=== PATIENT | male | born 1975 | race Caucasian/White ===

== ENCOUNTER 2020-06-20 20:11 | Emergency (ER) | payer MEDICAID, SELFPAY ==
[2020-06-20 20:13] VITALS: BP 140/100; PULSE 98; RESP 16; TEMP 36.4; O2SAT 99; BMI 21.4
--- NOTE | 2020-06-20 20:34 | EKG12_ITS ---
Test Reason : ABD PAIN Blood Pressure : / mmHG Vent. Rate : 074 BPM Atrial Rate : 074 BPM P-R Int : 126 ms QRS Dur : 108 ms QT Int : 394 ms P-R-T Axes : 064 067 069 degrees QTc Int : 437 ms Normal sinus rhythm Possible Left atrial enlargement Incomplete right bundle branch block Borderline ECG Confirmed by JONATHON MCDONOUGH, ANDRIA ([id number]), social media editor SEKOU MARSH ([id number]) on 06/25/2020 10:45:23 AM Referred By: ALCON Confirmed By:ANDRIA HOLT MD
--- NOTE | 2020-06-20 20:35 | ED.VIS.GEN ---
History of Present Illness Chief Complaint: Abd Pain Informant: Patient Narrative: 44-year-old male presenting with lightheadedness and a little shortness of breath. He states he also felt nauseous. This all started today. He does not body aches or change in taste or smell. He already had Covid a few months ago. He is on hormone replacement therapy on estrogen. He denies out right chest pain. Patient has leukocytosis of 13,000. Hemoglobin is stable. No history of DVT/PE. Past Medical History - Allergies and Home Meds Allergies/Adverse Reactions: Allergies No Known Allergies Allergy (Verified 06/20/20 20:12) Primary Care Physician: Care Physician,No Primary [Primary Care Provider] - Prior records reviewed: Yes Past Medical History: - - Denies significant medical problems Surgical History: noncontributory Lives: Alone Smoking Status: Current every day smoker Alcohol: None Drugs: None Review of Systems General: Denies: Chills, Fever, Sweats Eyes: Denies: Visual changes - bilaterally, Diplopia ENT: Denies: Rhinorrhea, Sore throat Cardiovascular: Denies: Chest pain, Palpitations Respiratory: Reports: Dyspnea, Cough. Denies: Sputum, Dyspnea on exertion Gastrointestinal: Reports: Nausea. Denies: Abdominal pain, Vomiting, Diarrhea, Melena, Hematochezia Genitourinary: Denies: Dysuria, Hematuria, Frequency Skin: Denies: Rash, Abscess Neurological: Reports: Headache. Denies: Parasthesia, Numbness Psych: Denies: Depression, Anxiety Endocrine: Denies: Polyuria, Polydipsia Physical Exam Vital Signs/Narrative: Vital Signs Temp Pulse Resp BP Pulse Ox 06/20/20 20:13 97.6 F L 98 16 140/100 H 99 Inital Vital Signs reviewed: Yes General: Well nourished, No Acute Distress Head: Normocephalic, Atraumatic Eyes: Perrl, EOMI ENT: Moist mucous membranes, No rhinorrhea Respiratory: No distress, CTA bilaterally Abdomen: Soft, Nontender, Nondistended Extremities: Nontender, No edema Skin: Normal color, No rash Neurological: Alert, Oriented x3, Cranial nerves II-XII grossly intact Psychological: Normal affect, Normal Mood Diagnostic/Tx/Re-eval Clinical Impression(s) from Imaging Studies Chest X-Ray 06/20/20 20:55 IMPRESSION: No acute cardiopulmonary disease or major interval change. Electronically Signed: Edenilson Mckeon DO at 21:26 EST Tel [phone], Service support , Chest CTA 06/20/20 21:31 IMPRESSION: Normal CTA chest examination, without a demonstrated pulmonary embolism or arterial dissection. Electronically Signed: Edenilson Mckeon DO at 21:59 EST Tel [phone], Service support , Laboratory Data 06/20/20 06/20/20 20:46 20:46 WBC 8.8 RBC 4.74 Hgb 14.6 Hct 42.9 MCV 90.5 MCH 30.8 MCHC 34.0 RDW Std Deviation 43.7 RDW Coeff of Terry 13.2 Plt Count 324 MPV 10.8 Immature Gran % (Auto) 0.300 Neut % (Auto) 64.3 Lymph % (Auto) 28.6 [place]illa % (Auto) 6.0 Eos % (Auto) 0.3 Baso % (Auto) 0.5 Absolute Neuts (auto) 5.6 Absolute Lymphs (auto) 2.51 Nucleated RBC % 0 Sodium 134 L Potassium 3.9 Chloride 101 Carbon Dioxide 27.0 Anion Gap 6 BUN 11 Creatinine 0.93 Estim Creat Clear Calc 96.59 Est GFR (MDRD) Af Amer 114 Est GFR (MDRD) Non-Af 94 BUN/Creatinine Ratio 11.8 Glucose 87 Calcium 9.3 Troponin I < 0.015 - Medical Decision Making Patient presenting with lightheadedness and shortness of breath with mild cough today. He states he also experienced nausea. EKG performed on arrival showed normal sinus rhythm with incomplete bundle branch block without signs of ischemic changes interpreted by myself. Chest x-ray one-view portable interpreted by myself shows no acute cardiopulmonary process. Lab work including CBC, CMP, and troponin were unremarkable. Given patient undergone estrogen and is post Covid I did have concern for PE. CTA of the chest does not identify any PE or dissection or other acute abnormality. Patient's vital signs are stable and he is afebrile nontoxic-appearing. I feel he is safe to be discharged home. Impression: 1. Viral syndrome ED Disposition - Plan for ED Patient: Disposition: Home or Assisted Living Instructions: ED Viral Syndrome (Adult) Referrals: Care Physician,No Primary [Primary Care Provider] -
--- NOTE | 2020-06-20 20:55 | RAD_ITS ---
STUDY: X-RAY CHEST REASON FOR EXAM: Male, 44 years old. Abdominal pain. Upset stomach. Lightheadedness and shortness of breath with symptoms beginning today. History of COVID 19 3 months ago. TECHNIQUE: Single AP portable view of the chest. COMPARISON: 01/23/2016. FINDINGS: The lungs are clear and expanded. There is no demonstrated pleural abnormality. Normal size heart. Normal mediastinum and anabela. Normal visualized pulmonary arteries. Normal visualized aortic arch and descending thoracic aorta. Normal visualized thoracic spine. Normal visualized ribs, clavicles, and shoulders. There is no demonstrated abnormality of the visualized soft tissue structures of the upper abdomen. RAD/Chest 1 View (Portable) IMPRESSION: No acute cardiopulmonary disease or major interval change. Electronically Signed: Edenilson Mckeon DO at 21:26 EST Tel [phone], Service support ,
[2020-06-20 21:04] LABS: Absolute Lymphocyte Count 2.51 X10^3/uL (0.83-4.51); Absolute Neutrophil Count 5.6 X10^3/uL (2.0-7.7); Basophil# 0.04 X10^3/uL; Basophil% 0.5 % (0-1); Eosinophil# 0.03 X10^3/uL; Eosinophils% 0.3 % (0-5); Hematocrit 42.9 % (40-54); Hemoglobin 14.6 g/dL (13.0-16.5); Lymphocyte # 2.51 X10^3/ul (4.0); Lymphocyte % 28.6 % (19-41); Mean Corpuscular Hgb 30.8 pg (27.0-32.0); Mean Corpuscular Volume 90.5 fL (80-94); Mean Platelet Vol. 10.8 fl (6.2-12.0); Monocyte# 0.53 X10^3/uL; NRBC Flagged by Analyzer 0 % (0-5); Neutrophil # 5.64 X10^3/uL (2.7-7.7); Neutrophil % 64.3 % (47-70); Platelet Count 324 K/mm3 (150-450); RBC Distribution Width CV 13.2 % (11.6-14.6); RBC Distribution Width SD 43.7 fl (35.1-43.9); Red Blood Count 4.74 M/mm3 (4.6-6.2); White Blood Count 8.8 K/mm3 (4.4-11.0)
[2020-06-20 21:21] LABS: Anion Gap 6 (5-15); BUN 11 mg/dL (7-18); BUN/Creat Ratio 11.8 RATIO (10-20); Calcium,Total 9.3 mg/dL (8.5-10.1); Chloride 101 mmol/L (98-107); Creatinine, Serum 0.93 mg/dL (0.70-1.30); EST Glomerular Filtration Rate 94 mL/min (>60); Est Glom Filt Rate - Afr Amer 114 mL/min (>60); Estimated Creatinine Clearance 96.59 ml/min; Glucose 87 mg/dL (74-106); Potassium 3.9 mmol/L (3.5-5.1); Sodium Level 134 mmol/L (136-145)
--- NOTE | 2020-06-20 21:31 | CT_ITS ---
STUDY: CTA CHEST REASON FOR EXAM: Male, 44 years old. Abdominal pain lightheadedness and shortness of breath beginning yesterday. History of COVID 19 3 months ago. RADIATION DOSAGE (If Supplied By Facility): CTDIvol = ( 4.38 ) mGy, DLP = ( 164.96 ) mGycm TECHNIQUE: The examination was performed with the intravenous administration of IV 100mL Isovue-370. Post-processing of the angiographic images was performed, with multiplanar reformation and 3D reconstruction. Individualized dose optimization techniques were used for this CT. COMPARISON: None. FINDINGS: Normal enhancement of the main pulmonary artery and right and left pulmonary arteries. Normal enhancement of the bilateral peripheral pulmonary arteries. There is no demonstrated pulmonary embolism. Normal thoracic aorta and visualized great vessels. There is no demonstrated aortic dissection. Normal heart and pericardium. Normal mediastinum. Normal hilar regions. Normal visualized trachea and bronchi. The lungs are well expanded. Normal pulmonary parenchyma. Normal pleura. Normal chest wall structures. Normal osseous structures. Normal visualized upper abdomen. CT/CTA Chest W/WO Contrast IMPRESSION: Normal CTA chest examination, without a demonstrated pulmonary embolism or arterial dissection. Electronically Signed: Edenilson Mckeon DO at 21:59 EST Tel [phone], Service support ,
[2020-06-20 22:14] VITALS: BP 117/86; PULSE 79; RESP 16; O2SAT 99
== END 2020-06-20 22:21 | disposition home or self-care (01) ==
PROVIDERS: Emergency Provider Student in an Organized Health Care Education/Training Program
DX: B34.9 Viral infection, unspecified (principal); R42 Dizziness and giddiness; R11.0 Nausea; R06.00 Dyspnea, unspecified; R05 Cough; R51.9 Headache, unspecified; I45.10 Unspecified right bundle-branch block; F17.200 Nicotine dependence, unspecified, uncomplicated
CPT/HCPCS: 71045; 71275; 80048; 84484; 85025; 93005; 96360; 99285; J7040; Q9967

== ENCOUNTER 2021-05-03 18:50 | Emergency (ER) | payer MEDICAID, SELFPAY ==
[2021-05-03 18:51] VITALS: BP 134/98; PULSE 97; RESP 18; TEMP 36.1; O2SAT 100; BMI 20.7
--- NOTE | 2021-05-03 21:59 | EDS_ITS ---
HPI HPI - URI History of Present Illness Chief Complaint: Cold Sx Narrative Narrative: 45-year-old male presenting with abdominal cramping. He states this is just like when he had Covid the first 2 times. He is not had a fever, chills, body aches. He does not have a cough. He does not feel short of breath. He is not having nausea, vomiting, diarrhea. He states that he just wants to get tested because he does not want anybody else sick. He states that on his first 2 bouts of Covid that he never required any specific treatment and did well. He has not been hospitalized. [facility] ED Constitutional Constitutional ED: Denies chills or fever(s) Eyes Eyes: Denies blurry vision or diplopia ENT ENT ED: Denies rhinorrhea or sore throat Cardiovascular Cardiovascular: Denies chest pain Respiratory/Chest Respiratory/Chest: Denies cough, dyspnea or sputum Gastrointestinal Gastrointestinal: Reports other Details: Mild abdominal cramping ; Denies diarrhea, nausea or vomiting Genitourinary Genitourinary ED: Denies dysuria or hematuria Musculoskeletal Musculoskeletal: Denies arthralgias or myalgias Integumentary Denies rash Neurologic Neurologic: Denies headache(s) or paresthesias Psychiatric Psychiatric: Denies anxiety or depression [facility] Medical History Depression Home Medications estradiol 2 mg PO TID 06/20/20 [History Last Taken Unknown] fluoxetine 20 mg PO DAILY 06/20/20 [History Last Taken Unknown] spironolactone 100 mg PO DAILY 06/20/20 [History Last Taken Unknown] Allergy/AdvReac Type Severity Reaction Status Date / Time No Known Allergies Allergy Verified 06/20/20 20:12 Social History Smoking Status: Current every day smoker tobacco type: cigarettes EXAM Physical Exam Const Vital Signs: 05/03/21 18:51 05/03/21 19:32 Temperature 96.9 F L Temperature Source Temporal Pulse Rate 97 Respiratory Rate 18 Respiratory Effort Normal Non-Labored Respiratory Depth Normal Respiratory Pattern Normal Blood Pressure 134/98 H Blood Pressure Mean 110 Pulse Ox 100 Oxygen Delivery Method Room Air Positive well nourished General Appearance ED: NAD; Negative for pallor HEENT Reports moist mucous membranes normocephalic and atraumatic Eyes PERRL and EOMs intact bilaterally Neck no lymphadenopathy, supple and no meningeal signs Resp normal respiratory effort and clear to auscultation bilaterally Cardio Rate: regular rate Rhythm: regular rhythm Extremity normal to inspection Neuro oriented x3 and CN's II-XII intact bilaterally Sensorium / Orientation: alert Psych mental status grossly normal Skin General Skin Exam: Negative for jaundice or pallor MDM MDM MDM Narrative Medical decision making narrative: Patient presenting requesting a test for COVID-19. He only has a mild abdominal cramping. He states this is probably his third time having COVID-19. He states that he did well with the other 2 times he was diagnosed. He does not require any treatment. He wants to be tested so that he does not infect others. Patient will be tested with Covid PCR send out. He is counseled to quarantine at home until his test results. If he is positive he is to quarantine for the full 10 days. If negative he is counseled on return to work. Patient amenable to this and stable for discharge. Impression: 1. Viral syndrome Discharge Plan Triage Chief Complaint: Cold Sx ED Provider: Haider Parker Dx/Rx/DC Orders Instructions: ED Viral Syndrome (Adult) Prescriptions: No Action spironolactone 100 MG tablet 100 mg PO DAILY RF: 0 estradiol 2 MG tablet 2 mg PO TID RF: 0 fluoxetine 20 MG capsule 20 mg PO DAILY RF: 0 Primary Care Provider: Care Physician,No Primary Referrals: Care Physician,No Primary [Primary Care Provider] - Disposition Disposition: Home, Self Care Discharge Date/Time: 05/03/21 20:22
== END 2021-05-03 20:22 | disposition home or self-care (01) ==
LOC: ED 20:02
PROVIDERS: Emergency Provider Student in an Organized Health Care Education/Training Program
DX: B34.9 Viral infection, unspecified (principal); R10.9 Unspecified abdominal pain; F32.A Depression, unspecified; Z79.899 Other long term (current) drug therapy; F17.210 Nicotine dependence, cigarettes, uncomplicated
CPT/HCPCS: 87635; 99282; U0003; U0005

== ENCOUNTER 2021-12-23 13:02 | Emergency (ER) | payer MEDICAID, SELFPAY ==
[2021-12-23 13:03] VITALS: BP 121/98; PULSE 99; RESP 16; TEMP 37.1; O2SAT 100; BMI 21.6
--- NOTE | 2021-12-23 13:41 | RAD_ITS ---
STUDY: X-RAY - LUMBAR SPINE REASON FOR EXAM: Male, 46 years old. LOW BACK PAIN, OLD INJURIES TECHNIQUE: 3 view(s) of the lumbar spine were obtained. COMPARISON: None FINDINGS: Normal lumbar lordosis. There is no substantial scoliosis. There is a normal alignment of the vertebrae. There is mild multilevel endplate spondylosis of the lumbar vertebrae. Normal disc space heights. L5/S1 facet arthropathy is present. The soft tissue structures are unremarkable. RAD/Lumbar Spine 2 or 3 Views IMPRESSION: Mild endplate degenerative changes with no evidence of underlying compression deformity or malalignment. L5/S1 facet arthropathy. Electronically Signed: Jacobo Abdul DO at 14:31 EDT ,
[2021-12-23] MEDS: Ketorolac 60 MG/2 ML Vial IM (14:07)
--- NOTE | 2021-12-23 14:32 | EDS_ITS ---
HPI History of Present Illness Chief Complaint: Back Informant: patient Narrative Narrative: 46-year-old patient presenting to the emergency room with low back pain and right leg pain. Patient states that about 4 months ago he felt his back suddenly tighten up when he bent over and since that time he has had pain since. He states that it is mid to low back in the lumbar area and radiates down into the right buttock and right leg. He denies any bowel or bladder dysfunction. He denies any foot drop. No fevers or IV drug use. No rashes. He has not seen anybody for this. Patient notes that he has not had any known direct trauma to the spine. He notes that he does drink quite heavily but plans on stopping this. He is a smoker [facility] Medical History Depression Home Medications estradiol 2 mg tablet 2 mg PO TID 06/20/20 [History Last Taken Unknown] fluoxetine 20 mg capsule 20 mg PO DAILY 06/20/20 [History Last Taken Unknown] spironolactone 100 mg tablet 100 mg PO DAILY 06/20/20 [History Last Taken Unknown] cyclobenzaprine 10 mg tablet 10 mg PO TID PRN Muscle Spasm #15 TABLETS 12/23/21 [Rx Last Taken Unknown] hydrocodone-acetaminophen 5-325mg 5mg-325mg 1 tab PO Q6H PRN PRN Pain 3 days #12 TABLETS 12/23/21 [Rx Last Taken Unknown] Allergy/AdvReac Type Severity Reaction Status Date / Time No Known Allergies Allergy Verified 12/23/21 13:03 Social History (Updated 12/23/21 @ 14:[address] Chuck Rodarte DO) Smoking Status: Current every day smoker tobacco type: cigarettes alcohol intake: current alcohol intake frequency: 3 or more drinks per day [facility] ED Constitutional Constitutional ED: Denies chills or weight loss Eyes Eyes: Denies change in vision or diplopia ENT ENT ED: Denies ear pain, rhinorrhea or sore throat Cardiovascular Cardiovascular: Denies chest pain, orthopnea, palpitations or racing heartbeat Respiratory/Chest Respiratory/Chest: Denies cough, dyspnea or orthopnea Gastrointestinal Gastrointestinal: Denies abdominal pain, diarrhea, nausea or vomiting Genitourinary Genitourinary ED: Denies dysuria, hematuria or urinary frequency Musculoskeletal Musculoskeletal: Reports back pain; Denies arthralgias or myalgias Integumentary Denies abscess or rash Neurologic Neurologic: Reports paresthesias; Denies headache(s) or weakness Psychiatric Psychiatric: Denies anxiety, depression, suicidal ideation or suicidal thoughts Endocrine Endocrinology: Denies polydipsia, polyphagia or polyuria Allergic/Immunologic Allergic/Immunologic ED: Denies mouth swelling, tongue swelling or urticaria EXAM Physical Exam Const Vital Signs: 12/23/21 13:03 Temperature 98.8 F Temperature Source Temporal Pulse Rate 99 Respiratory Rate 16 Blood Pressure 121/98 H Blood Pressure Mean 105 Pulse Ox 100 Oxygen Delivery Method Room Air Positive well nourished and well developed General Appearance ED: well developed HEENT Reports normocephalic, head/scalp atraumatic and moist mucous membranes Eyes PERRL and EOMs intact bilaterally Neck no lymphadenopathy, supple and no JVD Resp normal respiratory effort and clear to auscultation bilaterally Cardio regular rate, regular rhythm and no murmurs GI normal to inspection, nondistended, normoactive bowel sounds and non-tender Palpation: soft Back/Spine no CVA tenderness Back/Spine Narrative: Patient has painful flexion extension as well as rotation in the lumbar spine. There is lumbar paraspinal musculature tenderness. No hyperemic tissues. Tenderness in the piriformis notch. No foot drop or loss of sensation no saddle anesthesia. No rashes Extremity normal to inspection General Extremety ED: Negative for edema General Extremity: Negative for edema Neuro oriented x3 and CN's II-XII intact bilaterally Sensorium / Orientation: alert Motor Exam: strength 5/5 throughout Psych mental status grossly normal Mood & Affect: Negative for depressed or tearful Skin no rashes or lesions noted and no wounds MDM MDM MDM Narrative Medical decision making narrative: My interpretation of the plain films of the lumbar spine is no acute process. There seems to be adequate spacing between the vertebrae. Radiology reads as mild endplate degenerative changes with L5-S1 facet arthropathy. As its been 4 months the patient continues to have symptoms and we will have him follow-up with spine. I can write for a short course of pain medication. Would encourage him to quit smoking and drinking. Radiography Diagnostic Testing: Clinical Impression(s) from Imaging Studies Lumbar Spine X-Ray 12/23/21 13:41 IMPRESSION: Mild endplate degenerative changes with no evidence of underlying compression deformity or malalignment. L5/S1 facet arthropathy. Electronically Signed: Jacobo Abdul DO at 14:31 EDT , Discharge Plan Triage Chief Complaint: Back ED Provider: Chuck Rodarte Dx/Rx/DC Orders Clinical Impression: Acute lumbar radiculopathy, Acute lumbar back pain Instructions: ED Sciatica Prescriptions: New hydrocodone-acetaminophen [hydrocodone-acetaminophen] 5-325 mg tablet 1 tab PO Q6H PRN PRN (Reason: Pain) 3 Days Qty: 12 0RF cyclobenzaprine [cyclobenzaprine] 10 mg tablet 10 mg PO TID PRN (Reason: Muscle Spasm) Qty: 15 0RF No Action spironolactone 100 MG tablet 100 mg PO DAILY estradiol 2 MG tablet 2 mg PO TID fluoxetine 20 MG capsule 20 mg PO DAILY Primary Care Provider: Care Physician,No Primary Referrals: Emigdio Ly DO [Med Staff - Active Staff] - As soon as possible Care Physician,No Primary [Primary Care Provider] - Disposition Disposition: Home, Self Care
[2021-12-23 14:41] VITALS: PULSE 79; RESP 16; O2SAT 99
== END 2021-12-23 14:52 | disposition home or self-care (01) ==
PROVIDERS: Emergency Provider Emergency Medicine; Visit Provider Emergency Medicine
DX: M54.16 Radiculopathy, lumbar region (principal); F32.A Depression, unspecified; Z79.899 Other long term (current) drug therapy; F17.210 Nicotine dependence, cigarettes, uncomplicated
CPT/HCPCS: 72100; 96372; 99282

== ENCOUNTER → 2024-01-20 | Outpatient (CLI) | payer MEDICAID, SELFPAY ==
[2024-01-20 17:42] LABS: Absolute Lymphocyte Count 1.38 X10^3/uL (0.83-4.51); Absolute Neutrophil Count 4.4 X10^3/uL (2.0-7.7); Basophil# 0.04 X10^3/uL; Basophil% 0.6 % (0-1); Eosinophil# 0.03 X10^3/uL; Eosinophils% 0.5 % (0-5); Hematocrit 50.3 % (40-54); Lymphocyte # 1.38 X10^3/ul (0.83-4.51); Lymphocyte % 21.8 % (19-41); Mean Corp Hgb Conc 33.8 g/dL (32-36); Mean Corpuscular Hgb 31.4 pg (27.0-32.0); Monocyte# 0.45 X10^3/uL; Monocyte% 7.1 % (0-10); NRBC Flagged by Analyzer 0 % (0-5); Neutrophil # 4.41 X10^3/uL (2.7-7.7); Neutrophil % 69.5 % (47-70); Platelet Count 195 K/mm3 (150-450); RBC Distribution Width CV 13.5 % (11.6-14.6); RBC Distribution Width SD 46.5 fl (35.1-43.9); Red Blood Count 5.41 M/mm3 (4.6-6.2); White Blood Count 6.3 K/mm3 (4.4-11.0)
[2024-01-20 18:49] LABS: ALB/GLOB Ratio 0.8 RATIO (0.9-2.4); AST(SGOT) 102 U/L (15-37); Alanine Aminotransfer ALT/SGPT 86 U/L (16-61); Albumin, Serum 3.3 g/dL (3.2-5.0); Alkaline Phosphatase 91 U/L (45-117); Anion Gap 10 (5-15); BUN 6 mg/dL (7-18); BUN/Creat Ratio 7.3 RATIO (10-20); Calcium,Total 9.2 mg/dL (8.5-10.1); Chloride 105 mmol/L (98-107); Cholesterol 194 mg/dL (200); Creatinine, Serum 0.83 mg/dL (0.70-1.30); EST Glomerular Filtration Rate 106 mL/min (>60); Est Glom Filt Rate - Afr Amer 129 mL/min (>60); Estradiol 33.5 pg/mL; Globulin 4.3 g/dL (2.2-4.2); Glucose 91 mg/dL (74-106); High Density Lipoprotein 64 mg/dL; Luteinizing Hormone 8.4 mIU/mL; Potassium 4.1 mmol/L (3.5-5.1); Protein, Total 7.6 g/dL (6.4-8.2); Sodium Level 135 mmol/L (136-145); Thyroid Stim Hormone (TSH) 0.947 uIU/mL (0.358-3.740); Triglycerides 80 mg/dL; Very Low Density Lipoprotein 16 mg/dL (5-40)
[2024-01-20 18:55] LABS: Hemoglobin A1c 5.3 % (3.8-5.6)
[2024-01-20 20:57] LABS: Vitamin B12 424 pg/mL (211-911); Vitamin D,25 Hydroxy 31.4 ng/mL
[2024-01-22 08:14] LABS: PROGESTERONE 0.1 ng/mL (0.0-0.5)
[2024-01-28 13:08] LABS: Insulin Level 3.9 uIU/mL (2.6-24.9); Testosterone, % Free 2.38 % (1.50-4.20); Testosterone, Free 26.23 ng/dL (5.00-21.00); Testosterone, Total 1102 ng/dL (264-916)
== END | disposition home or self-care (01) ==
LOC: VSLAB 17:04
PROVIDERS: PCP Nurse Practitioner Family; Visit Provider Nurse Practitioner Family
DX: E55.9 Vitamin D deficiency, unspecified (principal); L60.3 Nail dystrophy; F64.0 Transsexualism; Z13.1 Encounter for screening for diabetes mellitus; Z13.220 Encounter for screening for lipoid disorders
CPT/HCPCS: 36415; 80053; 80061; 82306; 82607; 82670; 83001; 83002; 83036; 83525; 84144; 84402; 84403; 84443; 85025